=== PATIENT | female | born 1980 | race Caucasian/White ===

== ENCOUNTER 2018-06-07 15:13 | Inpatient (IN) | payer MEDICAID ==
[~2018-06-07] VITALS: Ht 154.9 cm; Wt 90.2 kg
[2018-06-07 15:19] VITALS: Ht 154.9 cm; Wt 90.2 kg
[2018-06-07] MEDS ORDERED: PREN-6 PO (15:21)
[2018-06-07] MEDS ORDERED: LACTATED RINGER'S 1,000 ML IV PRN (16:55)
[2018-06-07] MEDS ORDERED: AMPICILLIN 2 GM/NS (PMX) 100 ML IV ONE (17:00)
[2018-06-07] MEDS ORDERED: LIDOCAINE 1% (MPF) 30 ML INJ INJ PRN (17:00)
[2018-06-07] MEDS ORDERED: CARBOPROST 250 MCG INJ IM PRN (17:00)
[2018-06-07] MEDS ORDERED: MISOPROSTOL 200 MCG TAB PR PRN (17:00)
[2018-06-07] MEDS ORDERED: OXYTOCIN 30 UNITS/LR 500 ML IV PRN (17:00)
[2018-06-07] MEDS ORDERED: OXYTOCIN 30 UNITS/LR 500 ML IV SCH ×2 (17:00)
[2018-06-07] MEDS ORDERED: IBUPROFEN 600 MG TAB PO PRN (17:00)
[2018-06-07] MEDS ORDERED: BUTORPHANOL 2 MG INJ IV PRN (17:00)
[2018-06-07] MEDS ORDERED: METHYLERGONOVINE 0.2 MG INJ IM PRN (17:00)
[2018-06-07] MEDS ORDERED: MINERAL OIL LIGHT 10 ML VIAL TOP PRN (17:00)
--- NOTE | 2018-06-07 17:21 | TRIAGE ---
OB Triage Datetime Report Generated by CPN: 06/07/2018 17:21 Datetime: 06/07/2018 17:06 Assessment Type: Triage Time of Arrival: 06/07/2018 17:06 EGA: 38.2 Arrived From: TRIAGE Movement: Present Contractions: Denies/Absent Rupture of Membranes: Denies Vaginal Discharge: Denies Abdominal Trauma: Not Applicable Maternal Assessment Level of Consciousness: Fully Conscious DTR's/Clonus: DTRs 2+; No Clonus Headache: Denies Blurred Vision: No Respiratory Effort: Unlabored; Regular Rhythm; Equal Expansion Breath Sounds, Left: Clear and Equal Breath Sounds, Right: Clear and Equal Nausea/Vomiting: Denies RUQ Epigastric Pain: Denies Lower Extremities Edema: Bilateral Lower Extremities Degree: Trace Upper Extremities Edema: None Degree: None Facial Edema: None Fall Risk Assessment History of Falling: (0) No Secondary Diagnosis: (0) No Ambulatory Aid: (0) Bedrest/Nurse Assist IV Therapy: (0) No Gait: (0) Normal/Bedrest/Immobile Mental Status: (0) Oriented to Own Ability Fall Score: 0 Fall Risk Score Definition: No Risk: No action required Datetime: 06/07/2018 16:09 Time of Arrival: 06/07/2018 14:57 EGA: 38.2 Arrived By: Ambulatory Arrived From: [facility] Chief Complaint: r/o PIH Movement: Present Contractions: Denies/Absent Rupture of Membranes: Denies Vaginal Bleeding: Normal Show Vaginal Discharge: Denies Recent Sexual Intercouse: Denies Abdominal Trauma: Not Applicable Patient Complaints: None Time Provider Notified: 06/07/2018 16:44 Provider Notified: David Initial Plan: NST, BPP/IVÁN, EFW, PIH panel Datetime: 06/07/2018 16:00 Labor Evaluation Frequency: OCC Monitor Mode: External Quality: Mild Pattern: Normal: <= 5 Contractions in 10 Minutes Resting Tone [place]: Relaxed Heart Rate FHR Baseline Rate: 140 Monitor Mode: External US FHR Baseline Changes: No Baseline Change Variability: Moderate 6-25 bpm Accelerations: 15X15 Decelerations: None Category: Category I Pain Assessment Pain Presence: None/Denies Datetime: 06/07/2018 15:15 Assessment Type: Triage Maternal Assessment Level of Consciousness: Fully Conscious DTR's/Clonus: DTRs 2+; No Clonus Headache: Denies Blurred Vision: No Respiratory Effort: Unlabored; Regular Rhythm; Equal Expansion Breath Sounds, Left: Clear and Equal Breath Sounds, Right: Clear and Equal Nausea/Vomiting: Denies RUQ Epigastric Pain: Denies Lower Extremities Edema: Bilateral Lower Extremities Degree: Trace Upper Extremities Edema: None Degree: None Facial Edema: None Fall Risk Assessment History of Falling: (0) No Secondary Diagnosis: (0) No Ambulatory Aid: (0) Bedrest/Nurse Assist IV Therapy: (0) No Gait: (0) Normal/Bedrest/Immobile Mental Status: (0) Oriented to Own Ability Fall Score: 0 Fall Risk Score Definition: No Risk: No action required Datetime: 06/07/2018 15:14 Stage of : OB Triage
[2018-06-07] MEDS: LACTATED RINGER'S 1,000 ML IV SCH (18:50)
[2018-06-07] MEDS: MISOPROSTOL 50 MCG CAPSULE PO SCH (23:22)
[2018-06-07] MEDS: AMPICILLIN 1 GM/NS (PMX) 50 ML IV SCH (23:22)
[2018-06-08] MEDS: AMPICILLIN 1 GM/NS (PMX) 50 ML IV SCH ×6 (03:06→18:56)
[2018-06-08] MEDS: MISOPROSTOL 50 MCG CAPSULE PO SCH ×3 (05:32→09:44)
[2018-06-08] MEDS: LACTATED RINGER'S 1,000 ML IV SCH ×3 (05:33→18:41)
[2018-06-08] MEDS ORDERED: OXYTOCIN 30 UNITS/LR 500 ML IV SCH (10:00)
--- NOTE | 2018-06-08 20:18 | PREAC ---
Date/Time of Note Date/Time of Note DATE: 06/08/18 TIME: 20:18 Anesthesia Eval and Record Evaluation Time Pre-Procedure Interview DATE: 06/08/18 TIME: 20:18 Age 38 Sex female NPO: 8 hrs Preoperative diagnosis Planned procedure labor epidural Past Medical History Past Medical History: Includes GI: Obesity Surgery & Anesthesia Issues No known issue Meds Anticoagulation: No Beta Yumiko within 24 hr: No Reason Beta Yumiko not given: Pt. not on B-Yumiko Reported Medications Vits #93-Iron Fum-FA ( Formula) 1 Each Tablet, 1 TAB PO DAILY, TAB 06/07/18 Current Medications Lactated Ringer's 1,000 ml @ 125 mls/hr Q8H IV Last administered on 06/08/18at 18:41; Admin Dose 125 MLS/HR; Start 06/07/18 at 16:55 Ampicillin 50 ml @ 100 mls/hr Q4H IV Last administered on 06/08/18at 18:56; Admin Dose 100 MLS/HR; Start 06/07/18 at 21:00 Butorphanol Tartrate (Stadol) 2 mg Q2H PRN IV .PAIN; Start 06/07/18 at 17:00 Lidocaine (Xylocaine 1% (Mpf)) 30 ml ONCE PRN INJ .EPISIOTOMY; Start 06/07/18 at 17:00 Oxytocin/Lactated Ringer's 500 ml @ 500 mls/hr ONCE POST IV ; Start 06/07/18 at 17:00 Oxytocin/Lactated Ringer's 500 ml @ 125 mls/hr POST IV ; Start 06/07/18 at 17:00 Ibuprofen (Motrin) 600 mg ONCE PRN PO .PAIN 1-5; Start 06/07/18 at 17:00 Lactated Ringer's 1,000 ml @ 2,000 mls/hr Q30M PRN IV .ANESTHESIA; Start 06/07/18 at 16:55 Oxytocin/Lactated Ringer's 500 ml @ 0 mls/hr ONCE PRN IV .VAGINAL BLEEDING; Start 06/07/18 at 17:00 Methylergonovine Maleate (Methergine) 0.2 mg ONCE PRN IM .VAGINAL BLEEDING; Start 06/07/18 at 17:00 Carboprost Tromethamine (Hemabate) 250 mcg ONCE PRN IM .VAGINAL BLEEDING; Start 06/07/18 at 17:00 Misoprostol (Cytotec) 1,000 mcg ONCE PRN ID .VAGINAL BLEEDING; Start 06/07/18 at 17:00 Oxytocin/Lactated Ringer's 500 ml @ 0 mls/hr FOR INDUCTION IV Last administered on 06/08/18at 13:36; Admin Dose 1 MLS/HR; Start 06/08/18 at 10:00 Meds reviewed: Yes Allergies Coded Allergies: No Known Allergy (Unverified , 06/07/18) Allergies Reviewed: Yes Labs/Studies Labs Reviewed: Reviewed by anesthesiologist Result Diagram: 06/07/18 1807 06/07/18 1553 test: Positive Pre-procedure Exam Airway: Adequate mouth opening, Adequate thyromental dist Mallampati: Mallampati II Teeth: Normal Lung: Normal Heart: Normal ASA Physical Status ASA physical status: 2 Emergency: None Planned Anesthetic Neuraxial: Epidural Pre-operative Attestations Prior to commencing anesthesia and surgery, the patient was re-evaluated, there was verification of: *The patient's identity *The results of appropriate recent lab work and preoperative vital signs *The above evaluation not changing prior to induction *Anesthetic plan, risk benefits, alternative and complications discussed with patient/family; questions answered; patient/family understands, accepts and wishes to proceed. GIOVANY SIMON Jun 08, 2018 20:18
[2018-06-08] MEDS ORDERED: KETOROLAC 30 MG INJ IV PRN (20:30)
[2018-06-08] MEDS ORDERED: DIPHENHYDRAMINE 50 MG INJ IV PRN (20:30)
[2018-06-08] MEDS ORDERED: FENTAnyl 2MCG/ML-ROPIV 0.2% 100 ML BAG EPI SCH (20:30)
[2018-06-08] MEDS ORDERED: ONDANSETRON 4 MG INJ IV PRN (20:30)
[2018-06-08] MEDS ORDERED: NALOXONE (0.4 MG/ML) INJ IV PRN (20:30)
[2018-06-08] MEDS ORDERED: HYDROmorphONE 0.5 MG/0.5 ML SYG IV PRN ×2 (20:30)
--- NOTE | 2018-06-08 21:00 | PAC ---
Date/Time of Note Date/Time of Note DATE: 06/08/18 TIME: 21:00 Post-Anesthesia Notes Post-Anesthesia Note Activity: WNL Respiratory function: WNL Cardiovascular function: WNL Mental status: Baseline Pain reasonably controlled: Yes Hydration appropriate: Yes Nausea/Vomiting absent: Yes GIOVANY SIMON Jun 08, 2018 21:00
--- NOTE | 2018-06-08 22:08 | HP ---
Date/Time of Note Date/Time of Note DATE: 06/08/18 TIME: 22:06 OB - History Hx of Present Free Text/Dictation @38+wks GA Gestational HTN : 2 Para: 1 Care: Good Care Ultrasounds: Normal mid trimester US Obstetrical Complications: None Medical Complications: None Past Family/Social History * Past Medical, Surgical, Family and Obstetric Histories reviewed from chart. OB Admission Exam Physical Exam Abdomen: WNL Cervical Dilatation: 1cm Effacement: 0% Station: Ballotable Membranes: Intact Heart Rate: 140's Accelerations: Accelerations Present Decelerations: No Decelerations Varibility: Moderate Contractions on Admission: >10 Minutes Apart Last 72 hours Lab Results CBC & BMP 06/07/18 15:53 06/07/18 18:07 Liver Function Test 06/07/18 15:53 Alanine Aminotransferase (ALT/SGPT) 34 Albumin 3.4 Alkaline Phosphatase 211 H Aspartate Amino Transf (AST/SGOT) 36 Direct Bilirubin 0.00 Total Protein 6.9 OB Assessment/Plan Other Assessment: PMH denies PSH denies Plan: Induction DUANE GIL M.D. Jun 08, 2018 22:08
--- NOTE | 2018-06-08 22:10 | LDN ---
Date/Time of Note Date/Time of Note DATE: 06/08/18 TIME: 22:08 Delivery Summary Weeks of Gestation 38+ Assisted Vaginal Delivery: Vacuum ( bradycariida 2 attempts) Placenta Delivered: Spontaneously Meconium: none Episiotomy: No Perineal laceration: 1 Anesthesia type: Epidural Estimated blood loss: 200 Sponge & Needle done & correct: Yes All needle counts correct: Yes Any foreign bodies felt in the: No Delivery Information Sex Sex: male Apgars 1 Minute: 8 5 Minute: 9 Suctioning Nose & mouth suctioned at janice: Yes Delee suction performed: Yes Umbilical Cord Umbilical cord with: 3 Vessels Cord presentations: no nuchal cord Cord Blood was obtained: Yes Mother & Baby Disposition Disposition Mom & Baby to Maternity; Good: Yes Mom transferred to: Other Baby to NICU: No DUANE GIL M.D. Jun 08, 2018 22:10
[2018-06-09] VITALS (7 sets, daily range): BP systolic 124–157; BP diastolic 73–97; PULSE 79–90; RESP 18–20
[2018-06-09] MEDS ORDERED: OXYTOCIN 30 UNITS/LR 500 ML IV SCH (00:40)
[2018-06-09] MEDS ORDERED: OXYCODONE/ASPIRIN (4.88/325) TAB PO PRN (01:00)
[2018-06-09] MEDS ORDERED: ZOLPIDEM 5 MG TAB PO PRN (01:00)
[2018-06-09] MEDS ORDERED: NACL 0.9% 3 ML SYG IV SCH (01:00)
[2018-06-09] MEDS ORDERED: BENZOCAINE 20% 56 ML SPRAY TOP PRN (01:00)
[2018-06-09] MEDS ORDERED: MISOPROSTOL 200 MCG TAB PR PRN (01:00)
[2018-06-09] MEDS ORDERED: SENNA/DOCUSATE NA (8.6MG/50MG) TAB PO PRN (01:00)
[2018-06-09] MEDS ORDERED: WITCH HAZEL/GLYCERIN PAD PR PRN (01:00)
[2018-06-09] MEDS ORDERED: OXYTOCIN 30 UNITS/LR 500 ML IV PRN (01:00)
[2018-06-09] MEDS ORDERED: METHYLERGONOVINE 0.2 MG INJ IM PRN (01:00)
[2018-06-09] MEDS ORDERED: CARBOPROST 250 MCG INJ IM PRN (01:00)
[2018-06-09] MEDS ORDERED: LANOLIN HPA 1 PKT TOP PRN (01:00)
[2018-06-09] MEDS: IBUPROFEN 600 MG TAB PO SCH ×3 (06:00→17:48)
[2018-06-09] MEDS: SENNA/DOCUSATE NA (8.6MG/50MG) TAB PO SCH ×2 (09:00→22:38)
[2018-06-09] MEDS: LABETALOL 200 MG TAB PO SCH ×2 (16:46→23:30)
[2018-06-10] MEDS: IBUPROFEN 600 MG TAB PO SCH ×4 (00:08→17:54)
[2018-06-10 04:00] VITALS: BP 130/77; PULSE 77; RESP 18
[2018-06-10 08:00] VITALS: BP 146/95; PULSE 71; RESP 20
[2018-06-10] MEDS ORDERED: DIPHTH/TET/ACEL PERTUSS (ADULT) 0.5 ML VIAL IM* ONE (09:00)
[2018-06-10] MEDS: SENNA/DOCUSATE NA (8.6MG/50MG) TAB PO SCH ×2 (09:51→21:44)
[2018-06-10] MEDS: LABETALOL 200 MG TAB PO SCH ×2 (09:51→21:43)
--- NOTE | 2018-06-10 09:55 | QN ---
Documentation Comment Late entry note ppd#1 is stable afebrile .tolerates diet No VB +BM +voids VS table Gen NAD Abd soft NT ND Genitalia no blood at perineum --->discharge with precautions --->Questions answered --->follow up with provider DUANE GIL M.D. Jun 10, 2018 09:55
--- NOTE | 2018-06-10 09:57 | DS ---
Date/Time of Note Date/Time of Note DATE: 06/10/18 TIME: 09:56 Discharge Summary Admission/Discharge Info Admit Date/Time Jun 07, 2018 at 16:46 Discharge Date/Time 06/10/18 Discharge Diagnosis Patient Condition: Good Hospital Course uneventful Home Meds Reported Medications Vits #93-Iron Fum-FA ( Formula) 1 Each Tablet, 1 TAB PO DAILY, TAB 06/07/18 Primary Care Provider Care Physician No Primary DUANE GIL M.D. Jun 10, 2018 09:57
--- NOTE | 2018-06-10 09:57 | QN ---
Documentation Comment ppd#2 is stable afebrile .tolerates diet No VB +BM +voids VS table Gen NAD Abd soft NT ND Genitalia no blood at perineum --->discharge with precautions --->Questions answered DUANE GIL M.D. Jun 10, 2018 09:57
[2018-06-10 13:15] VITALS: BP 148/95; PULSE 74; RESP 20
[2018-06-10 15:53] VITALS: BP 151/96; PULSE 80; RESP 18
[2018-06-10 20:00] VITALS: BP 136/85; PULSE 82; RESP 18
[2018-06-11] VITALS: BP 119/80; RESP 17
[2018-06-11 04:00] VITALS: BP 122/82; PULSE 79; RESP 17
[2018-06-11] MEDS: IBUPROFEN 600 MG TAB PO SCH ×3 (06:25→12:29)
[2018-06-11 08:12] VITALS: BP 124/76; PULSE 80; RESP 16
[2018-06-11] MEDS: LABETALOL 200 MG TAB PO SCH (09:00)
[2018-06-11] MEDS: SENNA/DOCUSATE NA (8.6MG/50MG) TAB PO SCH (09:24)
[2018-06-11 12:25] VITALS: BP 144/87; PULSE 79; RESP 20
[2018-06-11] MEDS ORDERED: LABE200T7 PO (12:59)
--- NOTE | 2018-06-11 13:48 | QN ---
Documentation Comment labetalo 200 mg Po BID given to patient and follow up in two days in clinic DUANE GIL M.D. Jun 11, 2018 13:48
--- NOTE | 2018-06-12 15:04 | DELSUM ---
Delivery Summary A-C Datetime Report Generated by CPN: 06/12/2018 15:04 DELIVERY PERSONNEL Photo Lab Technician: Dries, Andriy MATERNAL INFORMATION Delivery Anesthesia: Epidural Medications in Delivery: LR WITH 30 UNITS PITOCIN Delivery QBL (ml): 200 Placenta Cultured: No Maternal Complications: Abruptio Placenta LABOR SUMMARY EDC: 06/19/2018 00:00 No. Babies in Womb: 1 Attempted: No Labor Anesthesia: Epidural LABOR INFORMATION Reason for Induction: Gest. HTN/PreEclam/Eclamp Onset of Labor: 06/08/2018 17:05 Complete Dilatation: 06/08/2018 21:24 Cervical Ripening Agents: Cytotec @ Oxytocin: Induction Group B Beta Strep: Not Done Antibiotics # of Doses: 7 Antibiotics Time of Last Dose: 06/08/2018 18:56 Steroids Given: None Reason Steroids Not Administered: Not Applicable MEMBRANES Membranes Rupture Method: Artificial Rupture of Membranes: 06/08/2018 21:24 Length of Rupture (hr): 0.10 Amniotic Fluid Color: Clear Amniotic Fluid Amount: Large Amniotic Fluid Odor: None STAGES OF LABOR Stage 1 hr: 4 Stage 1 min: 19 Stage 2 hr: 0 Stage 2 min: 6 Stage 3 hr: 0 Stage 3 min: 2 Total Time in Labor hr: 4 Total Time in Labor min: 27 VAGINAL DELIVERY Episiotomy: None Laceration Extension: First Degree Laceration Type: Vaginal Laceration Repair: Yes Initial Vag Sponge Count: 10 Final Vag Sponge Count: 10 Initial Vag Sharps Count: 1 Final Vag Sharps Count: 2 Sponge Count Correct: Yes; Vaginal Sweep Performed Sharps Count Correct: Yes BABY A INFORMATION Delivery Date/Time: 06/08/2018 21:30 Method of Delivery: Vaginal Born in Route : No : N/A Forceps: N/A Vacuum Extraction: Successful Shoulder Dystocia : N/A ASSISTED DELIVERY BABY A Catheter Prior to Procedure: Yes Station Vacuum/Forcep Apply: +1 Position Vacuum/Forcep Apply: Left Occipital Anterior Vacuum Number of Pulls: 2 Vacuum Number of PopOffs: 1 Reduce Pressure btwn Ctx: Yes Vacuum Director Web: [email or web address] Total Time Vacuum Applied: 60 SECONDS. Vacuum/Forceps Comment: MD GIL MANUALLY CONTROLLED PRESSURE SHOULDER DYSTOCIA BABY A Delivery Date/Time: 06/08/2018 21:30 PRESENTATION/POSITION BABY A Presentation: Cephalic Cephalic Presentation: Vertex Vertex Position: Left Occipital Anterior Breech Presentation: N/A PLACENTA INFORMATION BABY A Placenta Delivery Time : 06/08/2018 21:32 Placenta Method of Delivery: Spontaneous Placenta Status: Delivered SCORES BABY A Heart Rate 1 min: >100 bpm Resp Effort 1 min: Good Cry Reflex Irritability 1 min: Cough/Sneeze/Pulls Away Muscle Tone 1 min: Active Motion Color 1 min: Blue/Pale Resuscitation Effort 1 min: Tactile Stimulation; Oxygen; PPV/NCPAP SCORE 1 MIN: 8 Heart Rate 5 min: >100 bpm Resp Effort 5 min: Good Cry Reflex Irritability 5 min: Cough/Sneeze/Pulls Away Muscle Tone 5 min: Active Motion Color 5 min: Body [place], Extremit Blue Resuscitation Effort 5 min: Tactile Stimulation; Oxygen; PPV/NCPAP SCORE 5 MIN: 9 INFANT INFORMATION BABY A Gestational Age at Delivery: 38.3 Gestational Status: Early Term- 37- 38.6 Weeks Infant Outcome : Liveborn Infant Condition : Stable Sex: Male IDENTIFICATION/MEDS BABY A ID Band Number: [id number] ID Band Location: Right Leg; Left Arm Sensor Applied: Yes Sensor Number: [id number] Sensor Location : Cord Clamp Vitamin K Given : Not Given Erythromycin Given: Not Given WEIGHT/LENGTH BABY A Birthweight (gm): 2810 Weight (lb): 6 Infant Weight (oz): 3 Length (in): 19.00 Length (cm): 48.26 CORD INFORMATION BABY A No. Cord Vessels: 3 Nuchal Cord : N/A Cord Blood Taken: Yes Suction: Mouth; Nose ASSESSMENT BABY A Complications: Multiple Variable Decels Infant Respirations: Appears Normal Sports Reporter/ALS Called : Yes Infant Care By: ANSLEY Hernandez RN Transferred To: Remains with Mother
== END 2018-06-11 13:45 | disposition home or self-care (01) | DRG 807 ==
LOC: OBT 15:13 → L-D 15:14 → OBT 16:46 → L-D 16:46 → PP1 06-08 23:58
PROVIDERS: ADMIT Obstetrics & Gynecology; ATTEND Obstetrics & Gynecology
PROC: 10D07Z6 Extraction of Products of Conception, Vacuum, Via Natural or Artificial Opening (ICD-10-PCS; principal; 2018-06-08)
PROC: 0HQ9XZZ Repair Perineum Skin, External Approach (ICD-10-PCS; 2018-06-08)
DX: O13.4 Gestational [pregnancy-induced] hypertension without significant proteinuria, complicating childbirth (principal); O76 Abnormality in fetal heart rate and rhythm complicating labor and delivery; O99.214 Obesity complicating childbirth; E66.9 Obesity, unspecified; O70.9 Perineal laceration during delivery, unspecified; Z37.0 Single live birth; Z3A.38 38 weeks gestation of pregnancy
CPT/HCPCS: 62322; 76815; 76818; 80053; 81003; 84560; 85025; 85610; 85730; 86592; 86900; 86901; 87340; 99464; G0463; J0290; J2590; J3010; J7120